=== PATIENT | male | born 1965 | race Caucasian/White ===

== ENCOUNTER 2017-08-03 10:08 | Inpatient (IN) | payer OTHER ==
[2017-08-03] MEDS: IBUPROFEN 600 MG TAB PO (11:35)
[2017-08-03] MEDS: VANCOMYCIN 1 GM (PMX) 250 ML IVPB (13:28)
[2017-08-03 13:43] LABS: ADD MAN DIFF? NO
[2017-08-03 13:45] LABS: BASOPHIL # 0.1 10^3/ul (0.0-0.1); BASOPHILS % 0.6 % (0.0-2.0); EOSINOPHILS # 0.2 10^3/ul (0.0-0.5); EOSINOPHILS % 1.9 % (0.0-7.0); HEMATOCRIT 39.7 % (42.0-52.0); HEMOGLOBIN 12.5 g/dl (14.0-18.0); LYMPHOCYTES # 3.4 10^3/ul (0.8-2.9); LYMPHOCYTES % 33.8 % (15.0-51.0); MEAN CORPUSCULAR HEMOGLOBIN 24.7 pg (29.0-33.0); MEAN CORPUSCULAR HGB CONC 31.5 g/dl (32.0-37.0); MEAN CORPUSCULAR VOLUME 78.3 fl (82.0-101.0); MEAN PLATELET VOLUME 9.5 fl (7.4-10.4); MONOCYTE # 0.7 10^3/ul (0.3-0.9); MONOCYTES % 6.8 % (0.0-11.0); NEUTROPHIL # 5.7 10^3/ul (1.6-7.5); NEUTROPHILS % 56.5 % (39.0-77.0); PLATELET COUNT 408 10^3/UL (140-415); RED BLOOD COUNT 5.07 10^6/ul (4.70-6.10); RED CELL DISTRIBUTION WIDTH 13.4 % (11.5-14.5)
[2017-08-03 13:45] LABS: WHITE BLOOD COUNT 10.1 10^3/ul (4.8-10.8)
[2017-08-03 14:02] LABS: INR 0.89; PARTIAL THROMBOPLASTIN TIME 25.7 Sec (25.0-35.0); PROTIME 12.1 Sec (11.9-14.9); PT RATIO 0.9
[2017-08-03] MEDS: CEFTRIAXONE 1 GM/50 ML (PMX) 50 ML IVPB (14:02)
[2017-08-03 14:06] LABS: ANION GAP 17 (8-16); BLOOD UREA NITROGEN 20 mg/dl (7-20); CALCIUM 10.3 mg/dl (8.4-10.2); CARBON DIOXIDE 27 mmol/L (21-31); CHLORIDE 106 mmol/L (97-110); CREATININE 1.17 mg/dl (0.61-1.24); GLUCOSE 53 mg/dl (70-220); POTASSIUM 4.1 mmol/L (3.5-5.1); SODIUM 146 mmol/L (135-144)
[2017-08-03 15:19] LABS: ERYTHROCYTE SEDIMENTATION RATE 22 mm/Hr (0-20)
[2017-08-03 15:29] LABS: C-REACTIVE PROTEIN < 0.5 mg/dl (0.0-0.9)
[2017-08-03] MEDS: SOD CHLORIDE 0.9% 1,000 ML IV (17:38)
[2017-08-03] MEDS ORDERED: ACETAMINOPHEN 325 MG TAB PO ×2 (19:30→23:00)
[2017-08-03] MEDS ORDERED: ONDANSETRON 4 MG INJ IV (19:30)
[2017-08-03] MEDS ORDERED: morphine 2 MG INJ IV (23:00)
[2017-08-03] MEDS ORDERED: ONDANSETRON 4 MG TAB PO (23:00)
[2017-08-03] MEDS ORDERED: VANCOMYCIN IV PER PHARMACY XX (23:00)
[2017-08-03] MEDS ORDERED: NACL 0.9% 3 ML SYG IV (23:00)
[2017-08-04] MEDS: ACCU-CHEK XX (01:03)
[2017-08-04] MEDS: VANCOMYCIN IVPB (02:17)
[2017-08-04] MEDS: SOD CHLORIDE 0.45% IVPB (02:17)
[2017-08-04] MEDS ORDERED: hydrALAzine 20 MG INJ IV (04:30)
[2017-08-04 05:53] LABS: ADD MAN DIFF? NO
[2017-08-04 06:06] LABS: WHITE BLOOD COUNT 7.3 10^3/ul (4.8-10.8)
[2017-08-04 06:06] LABS: BASOPHILS % 0.5 % (0.0-2.0); EOSINOPHILS # 0.2 10^3/ul (0.0-0.5); EOSINOPHILS % 2.9 % (0.0-7.0); HEMATOCRIT 35.3 % (42.0-52.0); LYMPHOCYTES # 1.8 10^3/ul (0.8-2.9); LYMPHOCYTES % 23.9 % (15.0-51.0); MEAN CORPUSCULAR HEMOGLOBIN 24.6 pg (29.0-33.0); MEAN CORPUSCULAR HGB CONC 31.2 g/dl (32.0-37.0); MEAN PLATELET VOLUME 10.1 fl (7.4-10.4); MONOCYTE # 0.5 10^3/ul (0.3-0.9); MONOCYTES % 6.7 % (0.0-11.0); NEUTROPHIL # 4.8 10^3/ul (1.6-7.5); NEUTROPHILS % 65.7 % (39.0-77.0); PLATELET COUNT 337 10^3/UL (140-415); RED BLOOD COUNT 4.47 10^6/ul (4.70-6.10); RED CELL DISTRIBUTION WIDTH 13.2 % (11.5-14.5)
[2017-08-04 06:24] LABS: HEMOGLOBIN A1C 7.1 % (0-5.9)
[2017-08-04 06:31] LABS: ALANINE AMINOTRANSFERASE 31 IU/L (13-69); ALBUMIN 3.6 g/dl (3.3-4.9); ALBUMIN/GLOBULIN RATIO 1.02; ALKALINE PHOSPHATASE 70 IU/L (42-121); ANION GAP 11 (8-16); ASPARTATE AMINO TRANSFERASE 19 IU/L (15-46); BILIRUBIN,INDIRECT 0.1 mg/dl (0-1.1); BILIRUBIN,TOTAL 0.1 mg/dl (0.2-1.3); BLOOD UREA NITROGEN 18 mg/dl (7-20); CALCIUM 9.1 mg/dl (8.4-10.2); CARBON DIOXIDE 27 mmol/L (21-31); CHLORIDE 110 mmol/L (97-110); CHOL/HDL RATIO 3.3 RATIO; CHOLESTEROL 148 mg/dl (100-200); CREATININE 0.87 mg/dl (0.61-1.24); GLUCOSE 84 mg/dl (70-220); HDL CHOLESTEROL 44 mg/dl (28-71); LDL CHOLESTEROL,CALCULATED 92 mg/dl; MAGNESIUM 1.5 mg/dl (1.7-2.5); POTASSIUM 4.4 mmol/L (3.5-5.1); SODIUM 144 mmol/L (135-144); TOTAL PROTEIN 7.1 g/dl (6.1-8.1); TRIGLYCERIDES 60 mg/dl (0-149)
[2017-08-04] MEDS ORDERED: SOD CHLORIDE 0.45% IVPB ×2 (07:25→14:00)
[2017-08-04] MEDS ORDERED: VANCOMYCIN IVPB ×2 (07:25→14:00)
[2017-08-04] MEDS: INSULIN ASPART [NOVOLOG] 3 ML PEN SC ×4 (07:54→20:55)
[2017-08-04] MEDS ORDERED: DEXTROSE 50% 50 ML SYRINGE IV ×2 (09:30)
[2017-08-04] MEDS ORDERED: GLUCOSE GEL 15 GRAM TUBE PO ×2 (09:30)
[2017-08-04] MEDS ORDERED: GLUCAGON 1 MG INJ IM (09:30)
[2017-08-04] MEDS ORDERED: GLUCOSE GEL 15 GRAM TUBE BUCCAL (09:30)
[2017-08-04] MEDS: LISINOPRIL 5 MG TAB PO (09:40)
[2017-08-04] MEDS: MAGNESIUM SULFATE 3 GM in DEXTROSE 5% 100 ML IVPB (10:46)
[2017-08-04] MEDS: INSULIN GLARGINE [LANtus] 3 ML PEN SC (10:47)
[2017-08-04] MEDS: VANCOMYCIN 750 MG in SOD CHLORIDE 0.9% 150 ML IVPB (15:05)
[2017-08-05] MEDS: ACCU-CHEK XX (01:40)
[2017-08-05 01:53] LABS: VANCOMYCIN,TROUGH 10.2 ug/ml (10.0-20.0)
[2017-08-05] MEDS: VANCOMYCIN 750 MG in SOD CHLORIDE 0.9% 150 ML IVPB (02:23)
[2017-08-05 06:18] LABS: ADD MAN DIFF? NO
[2017-08-05 06:32] LABS: WHITE BLOOD COUNT 7.5 10^3/ul (4.8-10.8)
[2017-08-05 06:32] LABS: BASOPHIL # 0.1 10^3/ul (0.0-0.1); BASOPHILS % 0.7 % (0.0-2.0); EOSINOPHILS # 0.2 10^3/ul (0.0-0.5); EOSINOPHILS % 3.2 % (0.0-7.0); HEMATOCRIT 37.8 % (42.0-52.0); HEMOGLOBIN 11.9 g/dl (14.0-18.0); LYMPHOCYTES % 27.4 % (15.0-51.0); MEAN CORPUSCULAR HEMOGLOBIN 24.8 pg (29.0-33.0); MEAN CORPUSCULAR HGB CONC 31.5 g/dl (32.0-37.0); MEAN CORPUSCULAR VOLUME 78.8 fl (82.0-101.0); MEAN PLATELET VOLUME 9.8 fl (7.4-10.4); MONOCYTE # 0.4 10^3/ul (0.3-0.9); MONOCYTES % 5.6 % (0.0-11.0); NEUTROPHIL # 4.7 10^3/ul (1.6-7.5); NEUTROPHILS % 62.8 % (39.0-77.0); PLATELET COUNT 353 10^3/UL (140-415); RED CELL DISTRIBUTION WIDTH 13.3 % (11.5-14.5)
[2017-08-05 07:05] LABS: ANION GAP 13 (8-16); BLOOD UREA NITROGEN 18 mg/dl (7-20); CALCIUM 9.7 mg/dl (8.4-10.2); CARBON DIOXIDE 25 mmol/L (21-31); CHLORIDE 106 mmol/L (97-110); CREATININE 0.85 mg/dl (0.61-1.24); GLUCOSE 123 mg/dl (70-220); MAGNESIUM 1.7 mg/dl (1.7-2.5); POTASSIUM 4.3 mmol/L (3.5-5.1); SODIUM 140 mmol/L (135-144)
[2017-08-05] MEDS: INSULIN ASPART [NOVOLOG] 3 ML PEN SC ×4 (08:02→21:00)
[2017-08-05] MEDS: INSULIN GLARGINE [LANtus] 3 ML PEN SC (08:04)
[2017-08-05] MEDS: LISINOPRIL 5 MG TAB PO (08:58)
[2017-08-05 10:42] LABS: IRON 59 ug/dl (35-150)
[2017-08-05 10:51] LABS: % IRON SATURATION 18 % SAT (22-52); TOTAL IRON BINDING CAPACITY 336 ug/dl (241-421)
[2017-08-05 11:16] LABS: FERRITIN 32.5 ng/ml (11.1-264.0)
[2017-08-05] MEDS: VANCOMYCIN 1.25 GM in SOD CHLORIDE 0.45% 250 ML IVPB ×2 (11:44→22:59)
[2017-08-05] MEDS: LIDOCAINE 1% (MPF) 5 ML VIAL SC (19:00)
[2017-08-05] MEDS: SOD CHLORIDE 0.9% 100 ML (19:15)
[2017-08-06] MEDS: ACCU-CHEK XX (02:00)
[2017-08-06] MEDS: LISINOPRIL 5 MG TAB PO (08:01)
[2017-08-06] MEDS: INSULIN ASPART [NOVOLOG] 3 ML PEN SC ×4 (08:05→21:00)
[2017-08-06] MEDS: INSULIN GLARGINE [LANtus] 3 ML PEN SC (08:06)
[2017-08-06] MEDS: VANCOMYCIN 1.25 GM in SOD CHLORIDE 0.45% 250 ML IVPB ×2 (11:05→21:02)
== END 2017-08-07 00:45 | disposition home health service (06) | DRG 638 ==
LOC: FTE 10:08 → MS2 19:13
PROC: 02HV33Z Insertion of Infusion Device into Superior Vena Cava, Percutaneous Approach (ICD-10-PCS; principal; 2017-08-05)
PROC: B548ZZA Ultrasonography of Superior Vena Cava, Guidance (ICD-10-PCS; 2017-08-05)
DX: E11.69 Type 2 diabetes mellitus with other specified complication (principal); M86.141 Other acute osteomyelitis, right hand; M00.9 Pyogenic arthritis, unspecified; I10 Essential (primary) hypertension; M25.441 Effusion, right hand; D50.9 Iron deficiency anemia, unspecified; Z79.4 Long term (current) use of insulin
CPT/HCPCS: 36415; 36569; 71045; 73140; 73218; 76937; 80048; 80053; 80061; 80202; 82728; 82962; 83036; 83540; 83735; 84443; 85025; 85610; 85651; 85730; 86140; 93971; 96361; 96365; 96366; 96368; 99285-25

== ENCOUNTER 2017-09-25 13:13 | Emergency (ER) | payer OTHER | END 2017-09-25 14:17 | disposition home or self-care (01) | LOC: E/R 13:13 | DX: Z45.2 Encounter for adjustment and management of vascular access device (principal); I10 Essential (primary) hypertension; E11.9 Type 2 diabetes mellitus without complications; I25.10 Atherosclerotic heart disease of native coronary artery without angina pectoris; Z79.4 Long term (current) use of insulin; Z79.82 Long term (current) use of aspirin | CPT/HCPCS: 99282; Z7502 ==

== ENCOUNTER 2018-08-10 13:29 | Emergency (ER) | payer OTHER | END 2018-08-10 15:30 | disposition home or self-care (01) | LOC: FTE 13:29 | DX: R05 Cough (principal); M25.532 Pain in left wrist; E11.9 Type 2 diabetes mellitus without complications; I10 Essential (primary) hypertension; Z79.4 Long term (current) use of insulin; Z79.82 Long term (current) use of aspirin | CPT/HCPCS: 73110; 73110-LT; 99283-25 ==